=== PATIENT | female | born 2000 | race Caucasian/White ===

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

== ENCOUNTER 2020-03-18 16:16 | Emergency (ER) | payer BC, SELFPAY ==
[2020-03-18 16:16] VITALS: BP 91/45; PULSE 129; RESP 24; TEMP 36.1; O2SAT 100; BMI 25.0
[2020-03-18 16:36] VITALS: O2SAT 99
--- NOTE | 2020-03-18 16:36 | CT_ITS ---
STUDY: CTA CHEST REASON FOR EXAM: Female, 19 years old. SOB/CP RADIATION DOSAGE (If Supplied By Facility): CTDIvol = ( 5.33 ) mGy, DLP = ( 212.25 ) mGycm TECHNIQUE: The examination was performed with the intravenous administration of IV 100mL Isovue-370. Post-processing of the angiographic images was performed, with multiplanar reformation and 3D reconstruction. Individualized dose optimization techniques were used for this CT. COMPARISON: None. FINDINGS: Normal enhancement of the main pulmonary artery and right and left pulmonary arteries. Normal enhancement of the bilateral peripheral pulmonary arteries. There is no demonstrated pulmonary embolism. Normal thoracic aorta and visualized great vessels. There is no demonstrated aortic dissection. Normal heart and pericardium. Normal mediastinum. Normal hilar regions. Normal visualized trachea and bronchi. The lungs are well expanded. Partially calcified benign nodule in the left lower lobe. Normal pleura. Normal chest wall structures. Normal osseous structures. Normal visualized upper abdomen. CT/CTA Chest W/WO Contrast IMPRESSION: No central or segmental pulmonary embolus. Electronically Signed: Phani Dey MD ([place]) at 17:54 EDT , Service support ,
--- NOTE | 2020-03-18 16:36 | EKG12_ITS ---
Test Reason : CHEST OTHER Blood Pressure : / mmHG Vent. Rate : 105 BPM Atrial Rate : 105 BPM P-R Int : 126 ms QRS Dur : 082 ms QT Int : 350 ms P-R-T Axes : 075 078 021 degrees QTc Int : 462 ms Sinus tachycardia Otherwise normal ECG Confirmed by HUMA CORNEJO, BEN ([id number]), general expeditor EDITH UMAÑA ([id number]) on 03/20/2020 10:28:25 AM Referred By: PC Confirmed By:BEN FINN MD
--- NOTE | 2020-03-18 16:37 | ED.VIS.GEN ---
History of Present Illness Chief Complaint: Chest Other Narrative: Patient presents with chest pain that somewhat pleuritic and some exertional shortness of breath for the past 2 weeks. She has no fever chills cough or congestion. There is no abdominal pain no nausea or vomiting although she has chronic stomach issues, she actually feels better from the stomach standpoint today. She denies any headache. She is on her current menstrual cycle. Past Medical History - Allergies and Home Meds Allergies/Adverse Reactions: Allergies No Known Allergies Allergy (Verified 09/21/17 21:21) Primary Care Physician: Mishel Goodwin MD [NON-STAFF] - Past Medical History: - - Chronic gastritis Smoking Status: Never smoker Review of Systems All systems negative except as indicated General: Denies: Fever Eyes: Denies: Visual changes - bilaterally Cardiovascular: Reports: Chest pain Respiratory: Reports: Dyspnea. Denies: Cough, Sputum Gastrointestinal: Denies: Abdominal pain, Nausea, Vomiting Genitourinary: Denies: Dysuria Musculoskeletal: Denies: Myalgias Neurological: Denies: Headache, Weakness Psych: Denies: Depression Endocrine: Denies: Polyuria Hematologic: Denies: Easy bruising Allergy: Denies: Uticaria Physical Exam Vital Signs/Narrative: Vital Signs Temp Pulse Resp BP Pulse Ox 03/18/20 16:16 97 F L 129 H 24 H 91/45 L 100 Inital Vital Signs reviewed: Yes General: - - Patient appears relatively comfortable in bed. She is sitting up she is speaking full sentences Head: Normocephalic ENT: Moist mucous membranes Neck: Supple Cardiovascular: Regular rate, Regular rhythm Respiratory: No distress Abdomen: Soft, Nontender, Nondistended Back: Nontender, Normal Inspection Extremities: Nontender, No edema Skin: Normal color Neurological: Alert, Oriented x3 Psychological: Normal affect Diagnostic/Tx/Re-eval - Rhythm Strip Rhythm Strip: Sinus Rhythm Rate: 105 Ectopy: None - EKG Initial EKG Interpretation: - - Normal sinus rhythm with a rate of 105. Normal MA and QTc intervals. No ischemic changes. Interpreted by emergency doctor. - Medical Decision Making Patient has a normal emergency department work-up. She appears well. There is no evidence of PE or infection. I will discharge in stable condition. Was reassured. ED Disposition - Plan for ED Patient: Disposition: Home or Assisted Living Diagnosis: Chest pain Instructions: ED Chest Pain Atypical Unkn Cause Referrals: Mishel Goodwin MD [NON-STAFF] - 3-5 Days
[2020-03-18 16:57] LABS: Absolute Lymphocyte Count 1.73 X10^3/uL (0.83-4.51); Absolute Neutrophil Count 4.4 X10^3/uL (2.0-7.7); Basophil# 0.05 X10^3/uL; Basophil% 0.7 % (0-1); Eosinophil# 0.09 X10^3/uL; Eosinophils% 1.3 % (0-5); Hemoglobin 15.1 g/dL (12.0-15.0); Lymphocyte # 1.73 X10^3/ul (4.0); Lymphocyte % 25.3 % (19-41); Mean Corp Hgb Conc 35.1 g/dL (32-36); Mean Corpuscular Hgb 31.3 pg (27.0-32.0); Monocyte# 0.56 X10^3/uL; Monocyte% 8.2 % (0-10); NRBC Flagged by Analyzer 0 % (0-5); Neutrophil % 64.4 % (47-70); Platelet Count 389 K/mm3 (150-450); RBC Distribution Width CV 11.7 % (11.6-14.6); RBC Distribution Width SD 37.6 fl (35.1-43.9); Red Blood Count 4.83 M/mm3 (4.2-5.4); White Blood Count 6.8 K/mm3 (4.4-11.0)
[2020-03-18] MEDS: 0.9% Normal Saline 1,000 ML 1000 ML IV (17:15)
[2020-03-18] MEDS: Aspirin 81 MG TAB.CHEW 324 MG PO (17:23)
[2020-03-18 17:24] LABS: Anion Gap 11 (5-15); BUN 7 mg/dL (7-18); BUN/Creat Ratio 7.8 RATIO (10-20); Calcium,Total 9.6 mg/dL (8.5-10.1); Chloride 114 mmol/L (98-107); Creatinine, Serum 0.89 mg/dL (0.55-1.02); EST Glomerular Filtration Rate 86 mL/min (>60); Est Glom Filt Rate - Afr Amer 104 mL/min (>60); Estimated Creatinine Clearance 102.56 ml/min; Glucose 86 mg/dL (74-106); Magnesium 2.4 mg/dL (1.6-2.6); Potassium 3.8 mmol/L (3.5-5.1); Sodium Level 142 mmol/L (136-145)
[2020-03-18 18:25] VITALS: BP 117/66; PULSE 86; RESP 16; O2SAT 99
== END 2020-03-18 18:54 | disposition home or self-care (01) ==
PROVIDERS: Emergency Provider Emergency Medicine; PCP Student in an Organized Health Care Education/Training Program
DX: R07.9 Chest pain, unspecified (principal); R06.02 Shortness of breath; Z87.19 Personal history of other diseases of the digestive system
CPT/HCPCS: 71275; 80048; 83735; 84484; 85025; 93005; 96360; 99284; J7030; Q9967; A4216